=== PATIENT | male | born 1975 | race Caucasian/White ===

== ENCOUNTER 2016-08-30 20:39 | Emergency (ER) | payer OTHER, MEDICAID ==
[~2016-08-30] VITALS: Ht 167.6 cm; Wt 86.4 kg
[2016-08-30 20:44] VITALS: Ht 167.6 cm; Wt 86.4 kg
[2016-08-30] MEDS ORDERED: HALOPERIDOL 5 MG INJ ONE (21:30)
[2016-08-30] MEDS ORDERED: DIPHENHYDRAMINE 50 MG INJ ONE (21:30)
[2016-08-30] MEDS ORDERED: LORAZEPAM 2 MG INJ ONE (21:30)
[2016-08-30] MEDS ORDERED: HALOPERIDOL 5 MG INJ IM STA (21:58)
[2016-08-30] MEDS ORDERED: DIPHENHYDRAMINE 50 MG INJ IM ONE (22:00)
[2016-08-30] MEDS ORDERED: LORAZEPAM 2 MG INJ IM ONE (22:00)
[2016-08-30 22:23] VITALS: BP 170/92; PULSE 140; RESP 25; TEMP 97.5
--- NOTE | 2016-08-30 22:42 | PSY ---
Date/Time of Note Date/Time of Note DATE: 08/30/16 TIME: 22:34 Psychiatric Subjective Eval Consent Pt consented to telemedicine: Yes Subjective Evaluation Patient location: emergency Chief Complaint: BIB [facility] for medical clearance, hallucination,possible drug OD and ETOH use Reason for consult: Psychiatric evaluation History of present illness Patient reportedly stole hotel access card. He was arrested by PD. Appeared to be hallucinating and paranoid. He was brought to the ER. While in the ER he was combative and aggressive. He was given an injection of haldol/benadryl/ ativan in order to calm him. Patient interviewed after the injection. Remains agitated, looking around the room, behind his shoulder. Appears paranoid. Will not answer most questions. If he does answer it is with a "nope" and "yep. " He is not able/willing to tell me why he is in the hospital but he is aware that he is in a hospital. He denies all symptoms. Past psychiatric history Denies. [facility] in [facility] in past. Unclear details, duration and time. Hospitalization: no Family History Denies Medical history Denies Allergies: Coded Allergies: Unknown: Unable to obtain (Unverified , 08/30/16) Substance Abuse Substance use: No known substance abuse (However, appears to be using) Social History Marital status: other (Unknown) DPA/Conservatorship: No Psychiatric Objective Eval Mental Status Examination: Eye Contact: Poor Psychomotor Activity: Agitated Behavior: Suspicious, Guarded Speech: Monotone AFFECT: Anxious, Intense Mood: Anxious Though Process: Linear Thought Content: Delusions Suicidal: No Homicidal: No On 72 hour hold: No Orientation: x2 Cognition: Alert Insight: Impared Judgement: Impared Assessment and Plan Assessment/Diagnosis [place] I: Unspecified Psychotic Disorder, 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 Previous haldol/benadryl/ativan appears to have helped somewhat. Athough, he currently remains agitated. Psychotherapy N/A Pt. Caregiver/Family Education N/A Follow-up/Disposition As patient is currently, would recommend transfer to inpatient psychiatry. However, he may clear with some rest and not appear as acutely psychotic/ delusional. Consider re-evaluation if transfer takes some time and he stabilizes. 5150 Recommendation: Place Hold (Patient appears gravely disabled secondary to psychosis at this present time. ) CHRISTINE KNOTT Aug 30, 2016 22:42
[2016-08-30 23:02] LABS: ALBUMIN 4.3 g/dl (3.3-4.9); CHLORIDE 106 mmol/L (97-110)
[2016-08-30 23:03] LABS: BASOPHILS % 0.2 % (0.0-2.0); HEMATOCRIT 38.7 % (42.0-52.0); HEMOGLOBIN 13.5 g/dl (14.0-18.0); LYMPHOCYTES # 0.2 10^3/ul (0.8-2.9); LYMPHOCYTES % 1.7 % (15.0-51.0); MEAN CORPUSCULAR HEMOGLOBIN 34.2 pg (29.0-33.0); MEAN CORPUSCULAR HGB CONC 34.9 g/dl (32.0-37.0); MEAN CORPUSCULAR VOLUME 97.8 fl (82.0-101.0); MEAN PLATELET VOLUME 7.4 fl (7.4-10.4); MONOCYTE # 0.6 10^3/ul (0.3-0.9); NEUTROPHIL # 8.9 10^3/ul (1.6-7.5); NEUTROPHILS % 92.1 % (39.0-77.0); PLATELET COUNT 131 10^3/UL (140-440); POTASSIUM 3.6 mmol/L (3.5-5.1); RED BLOOD COUNT 3.95 10^6/ul (4.70-6.10); RED CELL DISTRIBUTION WIDTH 13.1 % (11.5-14.5); SODIUM 149 mmol/L (135-144); UNCORRECTED WBC 9.6 10^3/ul (4.8-10.8); WHITE BLOOD COUNT 9.6 10^3/ul (4.8-10.8)
[2016-08-30 23:05] LABS: ALANINE AMINOTRANSFERASE 51 IU/L (13-69); ALBUMIN/GLOBULIN RATIO 0.97; ALKALINE PHOSPHATASE 121 IU/L (42-121); ANION GAP 24 (8-16); ASPARTATE AMINO TRANSFERASE 117 IU/L (15-46); BILIRUBIN,INDIRECT 0.3 mg/dl (0-1.1); BILIRUBIN,TOTAL 0.3 mg/dl (0.2-1.3); BLOOD UREA NITROGEN 13 mg/dl (7-20); CARBON DIOXIDE 23 mmol/L (21-31); CREATININE 1.12 mg/dl (0.61-1.24); GLUCOSE 104 mg/dl (70-220); TOTAL PROTEIN 8.7 g/dl (6.1-8.1)
[2016-08-30 23:06] LABS: CALCIUM 9.6 mg/dl (8.4-10.2)
[2016-08-30 23:07] LABS: CONDITION 1; LH ANALYZER COMMENTS 1
[2016-08-30 23:09] LABS: ACETAMINOPHEN < 10.0 ug/ml (10.0-30.0); SALICYLATE < 1.0 mg/dl (5.0-30.0)
--- NOTE | 2016-08-31 01:56 | ERA ---
ER Documentation Chief Complaint Date/Time DATE: 08/31/16 TIME: 01:55 Chief Complaint BIB [facility] for medical clearance, hallucination,possible drug OD and ETOH use (MARIA R LOYA) HPI This is a 41-year-old male brought in by rescue for medical clearance. Patient is under arrest but was acting bizarrely. Patient has history of methamphetamine EtOH abuse. (MARIA R LOYA) ROS All systems reviewed and are negative except as per history of present illness. (MARIA R LOYA) Medications Home Meds Unable to Obtain Active Prescriptions or Reported Meds Allergies Allergies: Coded Allergies: No Known Allergy (Unverified , 08/31/16) PMhx/Soc Hx Alcohol Use: Yes Hx Substance Use: No Hx Tobacco Use: No Smoking Status: Unknown if ever smoked (MARIA R LOYA) Physical Exam Vitals Vital Signs Date Time Temp Pulse Resp B/P Pulse Ox O2 Delivery O2 Flow Rate FiO2 08/30/16 22:23 97.5 140 25 170/92 95 Room Air 08/30/16 20:44 97.6 140 18 97 (PATRICIA BETANCOURT) Physical Exam Const: [] Head: Atraumatic Eyes: Normal Conjunctiva ENT: Normal External Ears, Nose and Mouth. Neck: Full range of motion..~ No meningismus. Resp: Clear to auscultation bilaterally Cardio: Regular rate and rhythm, no murmurs Abd: Soft, non tender, non distended. Normal bowel sounds Skin: No petechiae or rashes Back: No midline or flank tenderness Ext: No cyanosis, or edema Neur: Awake and alert Psych: Normal Mood and Affect (MARIA R LOYA) Result Diagram: 08/30/16223708/30/162237 Results 24 hrs Laboratory Tests Test 08/30/16 22:38 08/31/16 02:30 Acetaminophen Level < 10.0ug/ml Alanine Aminotransferase (ALT/SGPT) 51IU/L Albumin 4.3g/dl Albumin/Globulin Ratio 0.97 Alkaline Phosphatase 121IU/L Anion Gap 24 Aspartate Amino Transf (AST/SGOT) 117IU/L Basophils # 0.010^3/ul Basophils % 0.2% Blood Urea Nitrogen 13mg/dl Calcium Level 9.6mg/dl Carbon Dioxide Level 23mmol/L Chloride Level 106mmol/L Creatinine 1.12mg/dl Direct Bilirubin 0.00mg/dl Eosinophils # 0.010^3/ul Eosinophils % 0.0% Ethyl Alcohol Level 146.0mg/dl Globulin 4.40g/dl Glucose Level 104mg/dl Hematocrit 38.7% Hemoglobin 13.5g/dl Indirect Bilirubin 0.3mg/dl Lymphocytes # 0.210^3/ul Lymphocytes % 1.7% Mean Corpuscular Hemoglobin 34.2pg Mean Corpuscular Hemoglobin Concent 34.9g/dl Mean Corpuscular Volume 97.8fl Mean Platelet Volume 7.4fl Monocytes # 0.610^3/ul Monocytes % 6.0% Neutrophils # 8.910^3/ul Neutrophils % 92.1% Nucleated Red Blood Cells # 0.010^3/ul Nucleated Red Blood Cells % 0.0/100WBC Platelet Count 51141^3/UL Potassium Level 3.6mmol/L Red Blood Count 3.9510^6/ul Red Cell Distribution Width 13.1% Salicylates Level < 1.0mg/dl Sodium Level 149mmol/L Total Bilirubin 0.3mg/dl Total Protein 8.7g/dl White Blood Count 9.610^3/ul Urine Amphetamines Screen POSITIVE Urine Bacteria OCCASIONAL Urine Barbiturates Negative Urine Benzodiazepines Screen NEGATIVE Urine Bilirubin NEGATIVE Urine Cannabinoids Negative Urine Clarity CLEAR Urine Cocaine Screen Negative Urine Color LT. YELLOW Urine Glucose NEGATIVE% Urine Hemoglobin 3+ Urine Hyaline Casts FEW Urine Ketones NEGATIVE Urine Leukocyte Esterase NEGATIVE Urine Microscopic RBC 10-25/HPF Urine Microscopic WBC 2-5/HPF Urine Nitrite NEGATIVE Urine Opiates Screen Negative Urine Specific [place] >=1.030 Urine Squamous Epithelial Cells MANY Urine Total Protein 2+ Urine Urobilinogen 0.2 E.U./dL Urine pH 6.0 Current Medications Medications (Trade) Dose Ordered Sig/Helen Route PRN Reason Start Time Stop Time Status Last Admin Dose Admin Diphenhydramine HCl (Benadryl) 50 mg STK-MED ONCE .ROUTE 08/30/16 21:30 08/30/16 21:31 DC Haloperidol (Haldol) 5 mg STK-MED ONCE .ROUTE 08/30/16 21:30 08/30/16 21:31 DC Lorazepam (Ativan) 2 mg STK-MED ONCE .ROUTE 08/30/16 21:30 08/30/16 21:31 DC Haloperidol (Haldol) 5 mg ONCE STAT IM 08/30/16 21:58 08/30/16 22:00 DC Diphenhydramine HCl (Benadryl) 50 mg ONCE ONCE IM 08/30/16 22:00 08/30/16 22:01 DC Lorazepam (Ativan) 2 mg ONCE ONCE IM 08/30/16 22:00 08/30/16 22:01 DC (PATRICIA BETANCOURT) Procedures/MDM Patient's behavioral symptoms have stabilized while in the department. Patient is medically cleared and appropriate for psychiatric evaluation and work up. No e/o neurologic, toxic, infectious, or metabolic cause. Patient was placed on a recommended hold for 5150 by telemetry psychiatry. Pending U placement (MARIA R LOYA) I assumed care at 6 AM. At that time, patient was awake alert comfortable cooperative and not combative. Patient was evaluated by the psychiatric evaluation team and felt not to meet criteria for 5150 hold. Upon my reassessment, patient had no suicidal or homicidal thoughts and did not appear to be gravely disabled. He was able to negotiate community and express a care plan for himself and was discharged home. (PATRICIA BETANCOURT) Departure Diagnosis: Primary Impression: Acute psychosis Additional Impression: Polysubstance abuse Condition: Stable MARIA R LOYA Aug 31, 2016 01:55 PATRICIA BETANCOURT Aug 31, 2016 10:02
[2016-08-31 02:40] LABS: ADD UMIC YES; URINE BILIRUBIN (Dip) NEGATIVE (NEGATIVE); URINE BLOOD (Dip) 3+ (NEGATIVE); URINE COLOR LT. YELLOW (YELLOW); URINE GLUCOSE (Dip) NEGATIVE (NEGATIVE); URINE KETONES (Dip) NEGATIVE (NEGATIVE); URINE LEUKOCYTE ESTERASE (Dip) NEGATIVE (NEGATIVE); URINE NITRITE (Dip) NEGATIVE (NEGATIVE); URINE TOTAL PROTEIN (Dip) 2+ (NEGATIVE); URINE UROBILINOGEN (Dip) 0.2 E.U./dL (0.1-1.0)
[2016-08-31 02:56] LABS: SQUAMOUS EPITHELIAL CELL,UR MANY
[2016-08-31 02:57] LABS: BACTERIA,URINE OCCASIONAL
[2016-08-31 03:02] LABS: COCAINE Negative (NEGATIVE)
[2016-08-31 03:07] LABS: BARBITURATES Negative (NEGATIVE); BENZODIAZEPINES NEGATIVE (NEGATIVE); CANNABINOIDS Negative (NEGATIVE); OPIATES Negative (NEGATIVE)
== END 2016-08-31 10:38 | disposition home or self-care (01) ==
LOC: E/R 20:39 → EDBD 20:39 → E/R 08-31 10:38
DX: F23 Brief psychotic disorder (principal); F19.10 Other psychoactive substance abuse, uncomplicated; R40.2142 Coma scale, eyes open, spontaneous, at arrival to emergency department; R40.2252 Coma scale, best verbal response, oriented, at arrival to emergency department; R40.2362 Coma scale, best motor response, obeys commands, at arrival to emergency department
CPT/HCPCS: 36415; 80053; 80306; 80307; 81001; 85025; 99285; J1200; J1630; J2060; 81003